=== PATIENT | male | born 1965 | race Caucasian/White ===

== ENCOUNTER 2016-11-21 23:17 | Emergency (ER) | payer OTHER ==
[~2016-11-21] VITALS: Ht 180.3 cm; Wt 89.6 kg
[~2016-11-21 23:17] MED LIST: BACTRIM,SEPT1 TABLET PO; CELEXA40 MG PO; CLONIDINE HCL0.1 MG PO; TEGRETOL200 MG PO; VITAMIN B12-FO1 EACH PO; VITAMIN C500 M5 PO; ZANTAC150 MG PO; ZOCOR40 MG PO; ZYPREXA
[2016-11-22] MEDS ORDERED: KEFLEX500 MG PO (01:42)
[2016-11-22 03:02] VITALS: BP 136/111
== END 2016-11-22 03:04 ==
LOC: EME → EDBD 23:17 → EME 23:17
DX: S51.811A Laceration without foreign body of right forearm, initial encounter (principal); S51.812A Laceration without foreign body of left forearm, initial encounter; S20.311A Abrasion of right front wall of thorax, initial encounter; S20.312A Abrasion of left front wall of thorax, initial encounter; X78.8XXA Intentional self-harm by other sharp object, initial encounter; Y92.143 Cell of prison as the place of occurrence of the external cause; Y99.8 Other external cause status; E78.5 Hyperlipidemia, unspecified; J44.9 Chronic obstructive pulmonary disease, unspecified; K21.9 Gastro-esophageal reflux disease without esophagitis; F31.9 Bipolar disorder, unspecified; Z23 Encounter for immunization
CPT/HCPCS: 73110; 99281; 99285

== ENCOUNTER 2018-01-19 18:30 | Emergency (ER) | payer OTHER ==
[~2018-01-19] VITALS: Ht 165.1 cm; Wt 78.3 kg
[~2018-01-19 18:30] MED LIST changes: +KEFLEX500 MG PO
[2018-01-19 18:32] VITALS: BP 131/91
== END 2018-01-19 20:25 | disposition left against medical advice (07) ==
LOC: EME 18:30
DX: S61.219A Laceration without foreign body of unspecified finger without damage to nail, initial encounter (principal); Z53.21 Procedure and treatment not carried out due to patient leaving prior to being seen by health care provider